=== PATIENT | female | born 2005 | race African-American/Black ===

== ENCOUNTER 2024-02-17 12:17 | Emergency (ER) | payer MEDICAID, OTHER ==
[~2024-02-17] VITALS: Ht 154.9 cm; Wt 93.5 kg
[2024-02-17 12:35] VITALS: BP 124/64; TEMP 98; O2SAT 100
== END 2024-02-17 16:00 | disposition home or self-care (01) ==
LOC: EDBD 12:17 → M ED 12:17
DX: M79.671 Pain in right foot (principal); Z88.0 Allergy status to penicillin

== ENCOUNTER → 2024-02-19 | Outpatient (REF) | payer OTHER ==
[2024-02-19 20:30] LABS: Trichomonas vaginalis (AMP) NOT DETECTED (NEGATIVE)
[2024-02-19 20:54] LABS: GC DNA AMPLIFICATION NEGATIVE (NEGATIVE)
[2024-02-20 14:41] LABS: HEMOGLOBIN A1c 4.8 % (4.0-6.0)
[2024-02-20 14:52] LABS: ALBUMIN 3.7 G/DL (3.2-5.2); ALKALINE PHOSPHATASE 109 U/L (46-116); ALT/SGPT 14 U/L (7.0-40); AST/SGOT 11 U/L (<34); BILIRUBIN,TOTAL 0.2 MG/DL (0.3-1.2); BLOOD UREA NITROGEN 12 MG/DL (9-23); CALCIUM LEVEL 9.3 MG/DL (8.5-10.1); CARBON DIOXIDE LEVEL 26 MMOL/L (20-31); CHLORIDE LEVEL 106 MMOL/L (98-107); CHOLESTEROL LEVEL 128 MG/DL (<200); CHOLESTEROL RISK RATIO 3.02 (<5); CREATININE FOR GFR 0.71 MG/DL (0.55-1.30); GLUCOSE, FASTING 87 MG/DL (60-100); HDL CHOLESTEROL 42.3 MG/DL (>40); LDL CHOLESTEROL 66.7 MG/DL (<100); NON-HDL-C 85.7 MG/DL; POTASSIUM SERUM 5.2 MMOL/L (3.5-5.1); SODIUM LEVEL 138 MMOL/L (136-145); TOTAL PROTEIN 7.4 G/DL (5.7-8.2); TRIGLYCERIDES LEVEL 95 MG/DL (<150)
== END ==
LOC: M LAB REF 16:10
PROVIDERS: ATTEND Physician Assistant
DX: Z11.9 Encounter for screening for infectious and parasitic diseases, unspecified (principal)

== ENCOUNTER → 2024-02-27 | Outpatient (CLI) | payer OTHER ==
[2024-02-27 14:08] LABS: HEMOGLOBIN A1c 4.8 % (4.0-6.0)
[2024-02-27 14:14] LABS: Trichomonas vaginalis (AMP) NOT DETECTED (NEGATIVE)
[2024-02-27 14:38] LABS: GC DNA AMPLIFICATION NEGATIVE (NEGATIVE)
[2024-03-02 19:48] LABS: TESTOSTERONE FREE (DIRECT) 4.4 pg/mL (0.1-6.4)
== END ==
LOC: M PLALAB 11:01
PROVIDERS: ATTEND Nurse Practitioner Family
DX: N92.6 Irregular menstruation, unspecified (principal); Z11.3 Encounter for screening for infections with a predominantly sexual mode of transmission

== ENCOUNTER → 2024-05-05 | Outpatient (REF) | LOC: M EMP 09:06 | PROVIDERS: ATTEND Family Medicine | DX: Z11.52 Encounter for screening for COVID-19 (principal) ==

== ENCOUNTER 2024-05-20 19:35 | Emergency (ER) | payer OTHER ==
[~2024-05-20] VITALS: Ht 154.9 cm; Wt 82.5 kg
[2024-05-20 19:36] VITALS: BP 132/73; TEMP 98.8; O2SAT 99
[2024-05-20 21:00] LABS: URINE PREG TEST NEGATIVE (NEGATIVE)
[2024-05-20 21:41] LABS: HEPATITIS B SURFACE ANTIBODY POSITIVE (POSITIVE)
[2024-05-20 21:53] LABS: HEPATITIS B SURFACE ANTIGEN NEGATIVE (NEGATIVE)
[2024-05-20 22:05] LABS: HIV 1&2 SCREEN NEGATIVE (NEGATIVE)
[2024-05-20 22:10] LABS: HCG, SERUM QUALITATIVE NEGATIVE (NEGATIVE)
[2024-05-20 22:14] LABS: Trichomonas vaginalis (AMP) NOT DETECTED (NEGATIVE)
[2024-05-20 22:14] LABS: HEPATITIS C VIRUS ABY INDEX 0.03 INDEX (<0.8)
[2024-05-20 22:37] LABS: GC DNA AMPLIFICATION NEGATIVE (NEGATIVE)
== END 2024-05-20 22:23 | disposition left against medical advice (07) ==
LOC: M ED 19:35
DX: Z53.21 Procedure and treatment not carried out due to patient leaving prior to being seen by health care provider (principal)

== ENCOUNTER 2024-08-12 15:48 | Emergency (ER) | payer OTHER ==
[~2024-08-12] VITALS: Ht 154.9 cm; Wt 79.2 kg
[2024-08-12 17:29] LABS: BASO % 0.6 % (0.0-1.0); EOS # 0.2 10^3/uL (0.0-0.5); EOS % 2.8 % (0.0-3.0); HEMATOCRIT 37.6 % (36.0-47.0); HEMOGLOBIN 12.3 g/dl (12.0-15.5); LYMPH # 2.6 10^3/uL (1.5-5.0); LYMPH % 38.2 % (24.0-44.0); MEAN CORPUSCULAR HGB CONC 32.7 g/dl (32.0-36.5); MEAN CORPUSCULAR VOLUME 88.7 fl (80.0-96.0); MONO # 0.8 10^3/uL (0.0-0.8); MONO % 11.2 % (2.0-8.0); NEUTROPHILS # 3.1 10^3/uL (1.5-8.5); NEUTROPHILS % 46.9 % (36.0-66.0); PLATELET COUNT, AUTOMATED 430 10^3/uL (150-450); RED BLOOD COUNT 4.24 10^6/uL (4.00-5.40); WHITE BLOOD COUNT 6.7 10^3/uL (4.0-10.0)
[2024-08-12 17:55] LABS: HCG, SERUM QUALITATIVE POSITIVE (NEGATIVE)
[2024-08-12 17:56] LABS: LIPASE 30 U/L (12-53)
[2024-08-12 17:58] LABS: ALBUMIN 3.4 G/DL (3.2-5.2); ALKALINE PHOSPHATASE 82 U/L (35-104); ALT/SGPT 13 U/L (7.0-40); AST/SGOT 12 U/L (<34); BILIRUBIN,DIRECT 0.1 MG/DL (<0.4); BILIRUBIN,TOTAL 0.3 MG/DL (0.3-1.2); BLOOD UREA NITROGEN 14 MG/DL (9-23); CALCIUM LEVEL 9.4 MG/DL (8.5-10.1); CARBON DIOXIDE LEVEL 29 MMOL/L (20-31); CHLORIDE LEVEL 108 MMOL/L (98-107); CREATININE FOR GFR 0.72 MG/DL (0.55-1.30); GLUCOSE, FASTING 92 MG/DL (60-100); POTASSIUM SERUM 4.3 MMOL/L (3.5-5.1); SODIUM LEVEL 142 MMOL/L (136-145); TOTAL PROTEIN 7.6 G/DL (5.7-8.2)
[2024-08-12 18:22] VITALS: BP 113/56; TEMP 98.1; O2SAT 99
[2024-08-12 18:56] LABS: HCG, SERUM QUANTITATIVE 7555.7 MIU/ML (<4.2)
== END 2024-08-12 18:29 | disposition left against medical advice (07) ==
LOC: M ED 15:48
DX: Z53.21 Procedure and treatment not carried out due to patient leaving prior to being seen by health care provider (principal)

== ENCOUNTER → 2024-10-21 | Outpatient (CLI) | payer OTHER ==
[2024-10-21 11:42] LABS: HEMATOCRIT 34.8 % (36.0-47.0); HEMOGLOBIN 11.5 g/dl (12.0-15.5); MEAN CORPUSCULAR HEMOGLOBIN 29.9 pg (27.0-33.0); MEAN CORPUSCULAR VOLUME 90.4 fl (80.0-96.0); PLATELET COUNT, AUTOMATED 337 10^3/uL (150-450); RED BLOOD COUNT 3.85 10^6/uL (4.00-5.40); WHITE BLOOD COUNT 7.2 10^3/uL (4.0-10.0)
[2024-10-21 12:28] LABS: HIV 1&2 SCREEN NEGATIVE (NEGATIVE)
[2024-10-21 12:37] LABS: HEPATITIS C VIRUS ABY INDEX 0.04 INDEX (<0.8)
[2024-10-21 13:41] LABS: GC DNA AMPLIFICATION NEGATIVE (NEGATIVE)
[2024-10-23 14:28] LABS: Trichomonas vaginalis (AMP) NOT DETECTED (NEGATIVE)
== END ==
LOC: M PLALAB 08:13
PROVIDERS: ATTEND Specialist
DX: Z34.80 Encounter for supervision of other normal pregnancy, unspecified trimester (principal)

== ENCOUNTER 2024-11-11 01:21 | Emergency (ER) | payer MEDICAID, OTHER ==
[~2024-11-11] VITALS: Ht 154.9 cm; Wt 73.6 kg
[2024-11-11 02:53] LABS: BASO % 0.3 % (0.0-1.0); EOS # 0.1 10^3/uL (0.0-0.5); EOS % 0.4 % (0.0-3.0); HEMATOCRIT 38.8 % (36.0-47.0); HEMOGLOBIN 12.6 g/dl (12.0-15.5); LYMPH # 0.6 10^3/uL (1.5-5.0); LYMPH % 5.3 % (24.0-44.0); MEAN CORPUSCULAR HEMOGLOBIN 29.2 pg (27.0-33.0); MEAN CORPUSCULAR HGB CONC 32.5 g/dl (32.0-36.5); MONO # 0.5 10^3/uL (0.0-0.8); MONO % 4.4 % (2.0-8.0); NEUTROPHILS % 89.2 % (36.0-66.0); PLATELET COUNT, AUTOMATED 361 10^3/uL (150-450); RED BLOOD COUNT 4.31 10^6/uL (4.00-5.40); WHITE BLOOD COUNT 11.3 10^3/uL (4.0-10.0)
[2024-11-11 03:18] LABS: LIPASE 54 U/L (12-53)
[2024-11-11 03:20] LABS: ALBUMIN 3.4 G/DL (3.2-5.2); ALKALINE PHOSPHATASE 105 U/L (35-104); ALT/SGPT 26 U/L (7.0-40); AST/SGOT 14 U/L (<34); BILIRUBIN,DIRECT 0.3 MG/DL (<0.4); BILIRUBIN,TOTAL 0.6 MG/DL (0.3-1.2); BLOOD UREA NITROGEN 12 MG/DL (9-23); CALCIUM LEVEL 9.5 MG/DL (8.5-10.1); CARBON DIOXIDE LEVEL 23 MMOL/L (20-31); CHLORIDE LEVEL 106 MMOL/L (98-107); CREATININE FOR GFR 0.66 MG/DL (0.55-1.30); GLOMERULAR FILTRATION RATE > 60.0 (>60); GLUCOSE, FASTING 93 MG/DL (60-100); POTASSIUM SERUM 3.7 MMOL/L (3.5-5.1); SODIUM LEVEL 141 MMOL/L (136-145); TOTAL PROTEIN 7.9 G/DL (5.7-8.2)
[2024-11-11 06:05] LABS: KETONE, URINE AUTO RFX 2+ mg/dL (NEGATIVE); LEUKOCYTE ESTERASE UR AUTO RFX NEGATIVE (NEGATIVE); MUCUS, URINE RFX LARGE (NEGATIVE); NITRITE, URINE AUTO RFX NEGATIVE (NEGATIVE); RBC, URINE AUTO RFX 0 /HPF (0-3); SQUAM EPITHELIAL CELL UR AURFX 2 /HPF (0-6); WBC, URINE AUTO RFX 2 /HPF (0-3)
[2024-11-11] MEDS: ONDANSETRON 4MG 2ML VIAL IV ONE (06:33)
[2024-11-11] MEDS: NS (Normal Saline) 0.9% 1,000 ML IV ONE (06:33)
[2024-11-11 07:38] VITALS: BP 99/52; TEMP 95.6; O2SAT 100
[2024-11-11] MEDS ORDERED: ONDA-282 PO (07:44)
== END 2024-11-11 07:56 | disposition home or self-care (01) ==
LOC: M ED 01:21
DX: A08.4 Viral intestinal infection, unspecified (principal); F12.10 Cannabis abuse, uncomplicated; Z88.0 Allergy status to penicillin; Z79.83 Long term (current) use of bisphosphonates
CPT/HCPCS: 76811; 76817; 80048; 80076; 81001; 83690; 85025; 87486; 87581; 87633; 87798; 96361; 96374; 99284; J2405

== ENCOUNTER → 2024-11-11 | Outpatient (CLI) | payer OTHER ==
[~2024-11-11] MED LIST: ONDA-282 PO
== END ==
LOC: M WHC 10:52
PROVIDERS: ATTEND Obstetrics & Gynecology
DX: Z36.89 Encounter for other specified antenatal screening (principal); Z3A.18 18 weeks gestation of pregnancy

== ENCOUNTER → 2025-02-16 | Outpatient (CLI) | payer OTHER ==
[2025-02-16 16:00] LABS: PLATELET COUNT, AUTOMATED 339 10^3/uL (150-450)
[2025-02-16 16:02] LABS: GLUCOSE CHALLENGE TEST 1 HOUR 108 MG/DL (LESS THAN 140)
[2025-02-16 16:34] LABS: HIV 1&2 SCREEN NEGATIVE (NEGATIVE)
[2025-02-16 16:41] LABS: HEPATITIS C VIRUS ABY INDEX 0.09 INDEX (<0.8)
[2025-02-16 17:39] LABS: Trichomonas vaginalis (AMP) NOT DETECTED (NEGATIVE)
[2025-02-16 18:03] LABS: GC DNA AMPLIFICATION NEGATIVE (NEGATIVE)
== END ==
LOC: M PLALAB 13:01
PROVIDERS: ATTEND Obstetrics & Gynecology
DX: Z34.92 Encounter for supervision of normal pregnancy, unspecified, second trimester (principal); Z3A.22 22 weeks gestation of pregnancy

== ENCOUNTER → 2025-02-16 | Outpatient (REF) | payer MEDICAID | LOC: M PLALAB 12:57 | PROVIDERS: ATTEND Obstetrics & Gynecology | DX: Z53.9 Procedure and treatment not carried out, unspecified reason (principal) ==

== ENCOUNTER → 2025-03-22 | Outpatient (REF) | payer MEDICAID, OTHER | LOC: M PLALAB 13:58 | PROVIDERS: ATTEND Nurse Practitioner Family | DX: Z34.83 Encounter for supervision of other normal pregnancy, third trimester (principal) ==

== ENCOUNTER → 2025-03-29 | Outpatient (REF) | payer OTHER, MEDICAID | LOC: M PLALAB 15:25 | PROVIDERS: ATTEND Nurse Practitioner Family | DX: M54.50 Low back pain, unspecified (principal) ==

== ENCOUNTER 2025-04-09 03:57 | Outpatient (CLI) | payer MEDICAID, OTHER ==
[~2025-04-09] VITALS: Ht 156.2 cm; Wt 82.0 kg
[2025-04-09] MEDS ORDERED: FERR325T3 PO (04:06)
[2025-04-09 04:08] VITALS: BP 114/63
[2025-04-09] MEDS ORDERED: HOME MED LIST COMPLETE! XX SCH (04:10)
[2025-04-09] MEDS: CALCIUM CARBONATE 500 MG CHEW U/D PO ONE (04:47)
[2025-04-12] MEDS ORDERED: IBUP80TA PO (10:46)
[2025-04-12] MEDS ORDERED: ACET-683 PO (10:46)
== END 2025-04-09 05:18 | disposition home or self-care (01) ==
LOC: M LDO 03:57
PROVIDERS: ATTEND Obstetrics & Gynecology
DX: O47.1 False labor at or after 37 completed weeks of gestation (principal); Z3A.39 39 weeks gestation of pregnancy